=== PATIENT | female | born 1945 | race Caucasian/White ===

== ENCOUNTER 2016-06-23 14:19 | Emergency (ER) | payer MEDICARE, OTHER ==
[~2016-06-23] VITALS: Ht 157.5 cm; Wt 78.0 kg
[~2016-06-23 14:19] MED LIST: BETH25TA; CIPR-173; COL250; ESOM40CA; GABA100C; LORA-444; TAMS-14
[2016-06-23 14:24] VITALS: Ht 157.5 cm; Wt 78.0 kg
[2016-06-23] MEDS ORDERED: LUBI24CA7 PO (15:22)
[2016-06-23] MEDS ORDERED: DULO30CA47 PO (15:22)
[2016-06-23] MEDS ORDERED: LYRI100 PO (15:23)
[2016-06-23] MEDS ORDERED: QUET25TA33 PO (15:24)
[2016-06-23] MEDS ORDERED: ESOM40CA PO (15:24)
[2016-06-23] MEDS ORDERED: LEVO50TA71 PO (15:25)
[2016-06-23] MEDS ORDERED: FURO-110 PO (15:25)
[2016-06-23] MEDS ORDERED: CYCL-319 PO (15:26)
[2016-06-23] MEDS ORDERED: LORA1TAB PO (15:27)
[2016-06-23 15:35] LABS: ADD UMIC NO; URINE BILIRUBIN (Dip) NEGATIVE (NEGATIVE); URINE BLOOD (Dip) NEGATIVE (NEGATIVE); URINE COLOR LT. YELLOW (YELLOW); URINE GLUCOSE (Dip) NEGATIVE (NEGATIVE); URINE KETONES (Dip) NEGATIVE (NEGATIVE); URINE LEUKOCYTE ESTERASE (Dip) NEGATIVE (NEGATIVE); URINE NITRITE (Dip) NEGATIVE (NEGATIVE); URINE TOTAL PROTEIN (Dip) NEGATIVE (NEGATIVE); URINE UROBILINOGEN (Dip) 0.2 E.U./dL (0.1-1.0)
[2016-06-23 15:55] LABS: ADD SCAN DIFF NO
[2016-06-23 15:58] LABS: BASOPHILS % 0.4 % (0.0-2.0); EOSINOPHILS # 0.3 10^3/ul (0.0-0.5); EOSINOPHILS % 4.7 % (0.0-7.0); HEMATOCRIT 41.5 % (37.0-47.0); HEMOGLOBIN 13.4 g/dl (12.0-16.0); LYMPHOCYTES # 1.6 10^3/ul (0.8-2.9); LYMPHOCYTES % 23.6 % (15.0-51.0); MEAN CORPUSCULAR HEMOGLOBIN 29.8 pg (29.0-33.0); MEAN CORPUSCULAR HGB CONC 32.3 g/dl (32.0-37.0); MEAN CORPUSCULAR VOLUME 92.2 fl (82.0-101.0); MEAN PLATELET VOLUME 9.5 fl (7.4-10.4); MONOCYTE # 0.4 10^3/ul (0.3-0.9); MONOCYTES % 6.5 % (0.0-11.0); NEUTROPHIL # 4.4 10^3/ul (1.6-7.5); NEUTROPHILS % 64.7 % (39.0-77.0); PLATELET COUNT 292 10^3/UL (140-415); RED CELL DISTRIBUTION WIDTH 13.8 % (11.5-14.5); WHITE BLOOD COUNT 6.8 10^3/ul (4.8-10.8)
[2016-06-23 16:02] LABS: BARBITURATES Negative (NEGATIVE); BENZODIAZEPINES Negative (NEGATIVE); CANNABINOIDS Negative (NEGATIVE); COCAINE Negative (NEGATIVE); OPIATES Negative (NEGATIVE)
[2016-06-23 16:09] LABS: ALBUMIN 4.2 g/dl (3.3-4.9)
[2016-06-23 16:10] LABS: CHLORIDE 99 mmol/L (97-110); POTASSIUM 3.4 mmol/L (3.5-5.1); SODIUM 141 mmol/L (135-144)
[2016-06-23 16:12] LABS: ALANINE AMINOTRANSFERASE 22 IU/L (13-69); ALBUMIN/GLOBULIN RATIO 1.23; ALKALINE PHOSPHATASE 75 IU/L (42-121); ANION GAP 13 (8-16); ASPARTATE AMINO TRANSFERASE 23 IU/L (15-46); BILIRUBIN,INDIRECT 0.1 mg/dl (0-1.1); BILIRUBIN,TOTAL 0.1 mg/dl (0.2-1.3); BLOOD UREA NITROGEN 9 mg/dl (7-20); CARBON DIOXIDE 32 mmol/L (21-31); CREATININE 0.63 mg/dl (0.44-1.00); TOTAL PROTEIN 7.6 g/dl (6.1-8.1)
[2016-06-23 16:13] LABS: CALCIUM 9.5 mg/dl (8.4-10.2); GLUCOSE 87 mg/dl (70-220)
[2016-06-23 16:16] LABS: ACETAMINOPHEN < 10.0 ug/ml (10.0-30.0); ETHANOL < 10.0 mg/dl; SALICYLATE < 1.0 mg/dl (5.0-30.0)
--- NOTE | 2016-06-23 18:20 | PSY ---
Date/Time of Note Date/Time of Note DATE: 06/23/16 TIME: 21:12 Psychiatric Subjective Eval Subjective Evaluation Chief Complaint: pt states difficulty with urination for 20 days and "body burning" Reason for consult: psychosis History of present illness The patient is a 70 yo female. She has limited cognitive functioning (dementia) and limited understanding of amharic. We did use a Farsi senior market intelligence consultant. The patient has an unclear psych hx, but was brought in by her caregiver (pt lives alone and has a caregiver 12 hours a day) for urinary retention of unknown cause. This MD was consulted for psychosis. The patient reports what appears to be a persecutory delusion about numerous individuals trying to burglar her. She says she otherwise feels safe at home but does not want to be around anyone, just alone. Past Psych Hx: not known PMHx: reports just arthritis Meds: flexeril, cymbalta 60mg, lorazepam 1mg bid, esomeprazole, lasix, lyrica, amitiza All: morphine Allergies: Coded Allergies: morphine (Verified Allergy, Severe, "FEELS LIKE SHE IS DYING", 06/23/16) Psychiatric Objective Eval Mental Status Examination: Appearance: Poor Hygiene Eye Contact: Fair Psychomotor Activity: Slow Behavior: Other (somewhat cooperative) Speech: Slowed AFFECT: Blunt Mood: Irritable Though Process: Linear Thought Content: Delusions Suicidal: No Homicidal: No On 72 hour hold: Yes Orientation: x3 Cognition: Drowsy Insight: Impared Judgement: Impared Attention Span: Distractible Laboratory Results Laboratory Tests Test 06/23/16 15:30 06/23/16 15:50 Urine Color LT. YELLOW Urine Clarity CLEAR Urine pH 6.0 Urine Specific [place] <=1.005 Urine Ketones NEGATIVE Urine Nitrite NEGATIVE Urine Bilirubin NEGATIVE Urine Urobilinogen 0.2 E.U./dL Urine Leukocyte Esterase NEGATIVE Urine Hemoglobin NEGATIVE Urine Glucose NEGATIVE% Urine Total Protein NEGATIVE Urine Opiates Screen Negative Urine Barbiturates Negative Urine Amphetamines Screen Negative Urine Benzodiazepines Screen Negative Urine Cocaine Screen Negative Urine Cannabinoids Negative White Blood Count 6.810^3/ul Red Blood Count 4.5010^6/ul Hemoglobin 13.4g/dl Hematocrit 41.5% Mean Corpuscular Volume 92.2fl Mean Corpuscular Hemoglobin 29.8pg Mean Corpuscular Hemoglobin Concent 32.3g/dl Red Cell Distribution Width 13.8% Platelet Count 55990^3/UL Mean Platelet Volume 9.5fl Neutrophils % 64.7% Lymphocytes % 23.6% Monocytes % 6.5% Eosinophils % 4.7% Basophils % 0.4% Nucleated Red Blood Cells % 0.0/100WBC Neutrophils # 4.410^3/ul Lymphocytes # 1.610^3/ul Monocytes # 0.410^3/ul Eosinophils # 0.310^3/ul Basophils # 0.010^3/ul Nucleated Red Blood Cells # 0.010^3/ul Sodium Level 141mmol/L Potassium Level 3.4mmol/L Chloride Level 99mmol/L Carbon Dioxide Level 32mmol/L Anion Gap 13 Blood Urea Nitrogen 9mg/dl Creatinine 0.63mg/dl Glucose Level 87mg/dl Calcium Level 9.5mg/dl Total Bilirubin 0.1mg/dl Direct Bilirubin 0.00mg/dl Indirect Bilirubin 0.1mg/dl Aspartate Amino Transf (AST/SGOT) 23IU/L Alanine Aminotransferase (ALT/SGPT) 22IU/L Alkaline Phosphatase 75IU/L Total Protein 7.6g/dl Albumin 4.2g/dl Globulin 3.40g/dl Albumin/Globulin Ratio 1.23 Salicylates Level < 1.0mg/dl Acetaminophen Level < 10.0ug/ml Ethyl Alcohol Level < 10.0mg/dl Assessment and Plan Assessment/Diagnosis [place]: psychotic do no, dementia nos Recommendation/Plan Medication Management The patient is a 70 yo female with dementia and now apparently psychosis brought in for urinary retention. Much of the history is unclear. However, the main concern is the patient's support. If she were to have on site soil evaluator homecare she would likely be able to go home. However, with her dementia and now persecutory delusions, it is not clear that the patient will be able to care for herself. For now, recommend continuing 5150 hold. If 24 hour care or higher level of support can be produced, pt could be discharged to this situation. If not, pt should continue on hold and be treatd. For now continue lorazepam 1mg bid to prevent withdrawawl though benzodiazepines are not recommended in elderly. Also continue cymbalta 30mg bid. Would start 1mg abilify and if she tolerates it can increase to 2mg after 4 days. JUAN MCKEON Jun 23, 2016 18:20
[2016-06-23] MEDS ORDERED: POTASSIUM CHLORIDE (SR) 20 MEQ TAB PO STA (18:33)
--- NOTE | 2016-06-23 18:34 | ERA ---
ER Documentation Chief Complaint Date/Time DATE: 06/23/16 TIME: 18:31 Chief Complaint pt states difficulty with urination for 20 days and "body burning" HPI This is a 70-year-old Farsi speaking female who presents to the emergency room with her daughter for evaluation of difficulty in urination and hallucinations. According to the patient's daughter the patient has been hallucinating and has been stating that her body is possessed. The patient's daughter does state that she has "psychiatric issues". She does state that she has had multiple previous admissions. The patient is denying any homicidal or suicidal ideation. She states that she is here because it is difficult to urinate. She denies any fevers chills or abdominal pain associated with this difficulty in urination. ROS All systems reviewed and are negative except as per history of present illness. Medications Home Meds Reported Medications Lorazepam* (Lorazepam*) 1 Mg Tablet, 1 MG PO HS Y for SLEEP, #30 TAB 06/23/16 Cyclobenzaprine Hcl* (Cyclobenzaprine Hcl*) 10 Mg Tablet, 10 MG PO QHS Y for MUSCLE SPASMS, #60 TAB 06/23/16 Levothyroxine Sodium* (Levoxyl*) 50 Mcg Tablet, 50 MCG PO BEFORE BREAKFAST, #30 TAB 06/23/16 Furosemide* (Lasix*) 20 Mg Tablet, 20 MG PO DAILY, TAB 06/23/16 Quetiapine Fumarate* (Quetiapine Fumarate*) 25 Mg Tablet, 25 MG PO HS, TAB 06/23/16 Esomeprazole Mag Trihydrate (Nexium) 40 Mg Capsule.dr, 40 MG PO DAILY, #30 CAP 06/23/16 Pregabalin* (Lyrica*) 100 Mg Capsule, 100 MG PO TID, CAP 06/23/16 Duloxetine Hcl* (Duloxetine Hcl*) 30 Mg Capsule.dr, 30 MG PO BID, #30 CAP 06/23/16 Lubiprostone* (Amitiza*) 24 Mcg Capsule, 24 MCG PO BID, #60 CAP 06/23/16 Discontinued Reported Medications Ciprofloxacin Hcl (Cipro) 500 Mg Tablet 06/18/10 Gabapentin* (Neurontin*) 100 Mg Capsule 06/17/10 Esomeprazole Mag Trihydrate (Nexium) 40 Mg Capsule. 06/17/10 Docusate Sodium (Colace) 250 Mg Cap 06/17/10 Tamsulosin Hcl* (Flomax*) 0.4 Mg Cap.sr.24h 06/17/10 Bethanechol Chloride (Urecholine) 25 Mg Tablet 06/17/10 Lorazepam* (Ativan*) 2 Mg Tablet 04/20/10 Allergies Allergies: Coded Allergies: morphine (Verified Allergy, Severe, "FEELS LIKE SHE IS DYING", 06/23/16) PMhx/Soc History of Surgery: No Anesthesia Reaction: No Hx Neurological Disorder: No Hx Respiratory Disorders: No Hx Cardiac Disorders: No Hx Psychiatric Problems: No Hx Miscellaneous Medical Probl: No Hx Alcohol Use: No Hx Substance Use: No Hx Tobacco Use: No Smoking Status: Unknown if ever smoked Physical Exam Vitals Vital Signs Date Time Temp Pulse Resp B/P Pulse Ox O2 Delivery O2 Flow Rate FiO2 06/23/16 14:24 98.1 70 18 114/70 99 Physical Exam INITIAL VITAL SIGNS: Reviewed by me GENERAL: The patient is well developed and appropriate for usual state of health in no apparent distress HEENT: Pupils equal, round, and reactive to light. EOMI. There is no scleral icterus. NECK: C-spine is soft and supple, there is no meningismus. There is no cervical lymphadenopathy. LUNGS: Clear to auscultation bilaterally. There are no rales, wheezes or rhonchi. HEART: Regular rate and rhythm, no murmurs, clicks, rubs or gallops. ABDOMEN: Soft, non-tender, non-distended. There are bowel sounds in all four quadrants. No rebound or guarding. EXTREMITIES: There is no peripheral cyanosis or edema. No focal swelling or erythema. NEUROLOGICAL: The patient moves all four extremities with 5/5 strength. Cranial nerves II - XII are intact. Normal gait. Alert and oriented SKIN: There is no apparent rash or petechiae. HEME/LYMPHATIC: There is no evidence of excessive bruising or lymphedema. PSYCHIATRIC: The patient does not appear anxious or depressed. Result Diagram: 06/23/16 1550 06/23/16 1550 Results 24 hrs Laboratory Tests Test 06/23/16 15:30 06/23/16 15:50 Urine Color LT. YELLOW Urine Clarity CLEAR Urine pH 6.0 Urine Specific [place] <=1.005 Urine Ketones NEGATIVE Urine Nitrite NEGATIVE Urine Bilirubin NEGATIVE Urine Urobilinogen 0.2 E.U./dL Urine Leukocyte Esterase NEGATIVE Urine Hemoglobin NEGATIVE Urine Glucose NEGATIVE% Urine Total Protein NEGATIVE Urine Opiates Screen Negative Urine Barbiturates Negative Urine Amphetamines Screen Negative Urine Benzodiazepines Screen Negative Urine Cocaine Screen Negative Urine Cannabinoids Negative White Blood Count 6.810^3/ul Red Blood Count 4.5010^6/ul Hemoglobin 13.4g/dl Hematocrit 41.5% Mean Corpuscular Volume 92.2fl Mean Corpuscular Hemoglobin 29.8pg Mean Corpuscular Hemoglobin Concent 32.3g/dl Red Cell Distribution Width 13.8% Platelet Count 42931^3/UL Mean Platelet Volume 9.5fl Neutrophils % 64.7% Lymphocytes % 23.6% Monocytes % 6.5% Eosinophils % 4.7% Basophils % 0.4% Nucleated Red Blood Cells % 0.0/100WBC Neutrophils # 4.410^3/ul Lymphocytes # 1.610^3/ul Monocytes # 0.410^3/ul Eosinophils # 0.310^3/ul Basophils # 0.010^3/ul Nucleated Red Blood Cells # 0.010^3/ul Sodium Level 141mmol/L Potassium Level 3.4mmol/L Chloride Level 99mmol/L Carbon Dioxide Level 32mmol/L Anion Gap 13 Blood Urea Nitrogen 9mg/dl Creatinine 0.63mg/dl Glucose Level 87mg/dl Calcium Level 9.5mg/dl Total Bilirubin 0.1mg/dl Direct Bilirubin 0.00mg/dl Indirect Bilirubin 0.1mg/dl Aspartate Amino Transf (AST/SGOT) 23IU/L Alanine Aminotransferase (ALT/SGPT) 22IU/L Alkaline Phosphatase 75IU/L Total Protein 7.6g/dl Albumin 4.2g/dl Globulin 3.40g/dl Albumin/Globulin Ratio 1.23 Salicylates Level < 1.0mg/dl Acetaminophen Level < 10.0ug/ml Ethyl Alcohol Level < 10.0mg/dl Procedures/MDM This 70-year-old female presents to the emergency room for evaluation of difficulty in urination. As I was evaluating this patient the patient's daughter stated that the patient is having visual hallucinations, and does state that her body is being possessed. The patient does have multiple admissions at different psychiatric centers according to the daughter for similar complaints in the past. I did place a Horn catheter in this patient with 330 cc of urine output. This patient had lab work done and she is medically cleared. I did have her evaluated by tele-neurologist who is recommending a [id number] hold at this time. This patient will be transferred to the first available inpatient psychiatric facility. I spoke with the patient in regards to her disposition and she feels comfortable. I have to contact the patient's daughter multiple times however 1 of the numbers that is on file is disconnected, and there is no response from the second number. Departure Diagnosis: Primary Impression: Urinary retention Additional Impressions: Visual hallucinations Multiple complaints Condition: Fair MANJULA HALE DO Jun 23, 2016 18:34
[2016-06-23 22:32] VITALS: BP 123/66; PULSE 79; RESP 18; TEMP 98.6
== END 2016-06-23 22:36 ==
LOC: E/R 14:19
DX: R33.9 Retention of urine, unspecified (principal); R44.1 Visual hallucinations; R40.2142 Coma scale, eyes open, spontaneous, at arrival to emergency department; R40.2252 Coma scale, best verbal response, oriented, at arrival to emergency department; R40.2362 Coma scale, best motor response, obeys commands, at arrival to emergency department
CPT/HCPCS: 80053; 80306; 80307; 81003; 85025